=== PATIENT | female | born 1945 | race African-American/Black ===

== ENCOUNTER 2021-12-09 21:01 | Emergency (ER) | payer MEDICARE, MEDICAID ==
[2021-12-09 22:40] LABS: ESTIMATED GFR 46 mL/min (>60)
[2021-12-09] MEDS ORDERED: Sodium Chloride 0.9% 500 ML IV ONE (23:45)
[2021-12-09] MEDS ORDERED: Sodium Chloride 0.9% 100 ML IV SCH (23:45)
[2021-12-09] MEDS ORDERED: Iopamidol 755 Mg/ML 100 ML Bottle IVPUSH ONE (23:54)
[2021-12-09] MEDS ORDERED: Sodium Chloride 0.9% 10 ML Syringe FLUSH ONE (23:54)
== END 2021-12-10 02:59 | disposition home or self-care (01) ==
LOC: JD.ED 21:01
DX: R00.2 Palpitations (principal); I10 Essential (primary) hypertension; Z88.8 Allergy status to other drugs, medicaments and biological substances; Z86.16 Personal history of COVID-19; Z90.49 Acquired absence of other specified parts of digestive tract
CPT/HCPCS: 36415; 71045; 71275; 80053; 83735; 83880; 84484; 85025; 85379; 85610; 85730; 93005; 96360; 99285; J3490; J7030; Q9967; 93010; 99284